=== PATIENT | female | born 1955 | race Caucasian/White ===

== ENCOUNTER 2023-09-17 09:54 | Outpatient (RCR) | payer OTHER, SELFPAY | END 2023-09-17 23:59 | disposition home or self-care (01) | LOC: RPT 09:54 | PROVIDERS: ATTENDING PHYSICIAN Student in an Organized Health Care Education/Training Program; FAMILY PHYSICIAN Internal Medicine | DX: M54.16 Radiculopathy, lumbar region (principal); Z73.6 Limitation of activities due to disability | CPT/HCPCS: 97010; 97110 ==

== ENCOUNTER → 2024-05-13 08:59 | Outpatient (REF) | payer OTHER, SELFPAY | LOC: HWRAD 08:59 | PROVIDERS: ATTENDING PHYSICIAN Surgery; FAMILY PHYSICIAN Internal Medicine | DX: K43.9 Ventral hernia without obstruction or gangrene (principal) | CPT/HCPCS: 74177; Q9967 ==

== ENCOUNTER 2025-06-28 06:18 | Day surgery (SDC) | payer OTHER, SELFPAY ==
[2025-06-23 09:06] LABS: INR 0.95; PT 13.1 Sec (11.4-14.6)
[2025-06-23 09:07] LABS: APTT 26.6 Sec (23.4-35.0); Hematocrit 41.0 % (37.0-47.0); Hemoglobin 13.9 g/dL (12.0-16.0); Mean Corp Hgb Conc. 33.9 g/dL (33.0-37.0); Mean Corpuscular Volume 89.5 fL (81.0-99.0); Platelet Count 278 10^3/uL (130-400); Red Cell Dist. Width 12.5 % (11.5-14.5)
[2025-06-23 09:44] LABS: ALT (SGPT) 47 U/L (0-35); AST (SGOT) 51 U/L (14-36); Albumin 4.5 g/dl (3.5-5.0); Alkaline Phosphatase 116 U/L (38-126); Blood Urea Nitrogen 17 mg/dl (7-17); Calcium 9.8 mg/dl (8.4-10.2); Carbon Dioxide 28 mmol/L (22-30); Chloride 104 mmol/L (98-107); Glucose 102 mg/dl (70-99); Potassium 4.5 mmol/L (3.5-5.1); Sodium 139 mmol/L (135-145); Total Protein 8.0 g/dl (6.3-8.2); eGFR > 60.00
[2025-06-23 14:18] VITALS: BMI 29.8
--- NOTE | 2025-06-24 11:30 | PTCARENOTE ---
Previous ECG dated 11/01/05 shows T wave abnormality.
[2025-06-28] VITALS (11 sets, daily range): BP systolic 120–175; BP diastolic 70–85; BMI 29.8
--- NOTE | 2025-06-28 09:17 | HP.FOC2 ---
Focused History & Physical
Chief Complaint
HPI:
Chief Complaint: Ventral hernia
HPI / Indication for Planned Procedure: Patient is a 69-year-old female recently seen in outpatient surgical evaluation secondary to a longstanding history of visible swelling along the upper central abdominal wall. It has slowly increased in size
over the years and now is visible through her clothing. The hernia is rarely painful but she does have an awareness of the pain present with some pressure and occasional discomfort. Physical examination confirmed the presence of a soft, partially
reducible ventral hernia along the central abdomen superior to the umbilicus. This is superimposed within significant diastasis recti. Patient presents today for scheduled operative correction of her symptomatic ventral hernia.
Relevant Past Medical History: Other (Hypertension, primary biliary cirrhosis/autoimmune hepatitis, anxiety)
Relevant Social History: ETOH (History of alcohol abuse/use)
Relevant Family History: Negative
Relevant Past Surgical History: Positive for (Tubal ligation, liver biopsy)
Review of Systems
Review of Pertinent Systems: All Systems Negative
Medication
See Medication form for detailed medications: Yes
Medication List (including Herbals & OTC):
lisinopril 20 mg-hydrochlorothiazide 25 mg tablet 1 tab PO DAILY Blood Pressure 04/14/23
ursodiol 500 mg tablet 500 mg PO TID Gallstones 04/14/23
Probiotic 1 cap PO DAILY 06/22/25
Vitamin D3 1 cap PO DAILY 06/22/25
omega 5-cfk-[id number]-fish oil 1,000 mg (120 mg-180 mg) capsule (Fish Oil) 1 cap PO DAILY 06/22/25
turmeric 1 cap PO DAILY 06/22/25
Medications Reviewed: Yes
Allergies and Reactions
Patient has Allergies: Yes
Noted Allergies and Reactions:
Allergy/AdvReac Type Severity Reaction Status Date / Time
MP3 Allergy Leg Uncoded 06/22/25 13:12
Swelling &
Fever
Pertinent Physical Exam
All Other Systems: Negative
Head/Neck: Normal
Lungs: Normal
Heart: Normal
Abdomen: Other (Supra umbilical ventral hernia, partially reducible)
Extremities: Normal
Neurological: Normal
Diagnosis / Assessment
69-year-old female presenting for scheduled operative correction ventral/umbilical hernia
Plan / Procedure
Robotic assisted laparoscopic repair of ventral/umbilical hernia with mesh
Anesthesia/Sedation to be done by Anesthesia Provider: Yes
--- NOTE | 2025-06-28 09:21 | W.SUR.PREOP ---
Pre-Operative Surgical Note
-
I have examined this patient prior to the performance of the scheduled procedure.
The patient's condition is unchanged from the time of the current History and
Physical and the patient is able to undergo the scheduled procedure.
[2025-06-28] MEDS: TYLENOL 1000 MG PO (09:33)
[2025-06-28] MEDS: NORMOSOL-R/PLASMALYTE-A 1000 IV (09:38)
--- NOTE | 2025-06-28 11:23 | W.IMMPOSTOP ---
Surgical Immed Post Op Note
-
Primary Surgeon: Mukesh Dumont MD
Assisting Surgeon: Mesha VELEZ; Kelly Hamilton
Pre-op Diagnosis: Ventral/umbilical hernia
Post-op Diagnosis: Ventral/umbilical hernia -total length including fascial bridge 7 cm
Procedure Performed: Robotic assisted laparoscopic AYANNA repair ventral/umbilical hernia with mesh; Bard soft 15 cm x 13 cm
Anesthesia Type: GETA +0.25% Marcaine with epi
Specimen / Cultures: None
Estimated Blood Loss: 6 mL
Complications: None immediate
Operative Findings: Symptomatic ventral hernia, 3 cm fascial defect. Multiple small areas of fascial separation subcentimeter inferior to primary ventral hernia. Umbilical hernia 1.5 cm. Total length of hernias including fascial bridge 7 cm
vertically. Transabdominal preperitoneal repair. Bard soft mesh 15 cm x 13 cm underlay secured with 2-0 Vicryl posterior sheath and linea alba fascial stitches. Peritoneal flap closed with 2-0 Monocryl STRATAFIX spiral. Umbilical hernia defect
and ventral hernia defect closed with 0 PDS STRATAFIX symmetric.
== END 2025-06-28 13:55 | disposition home or self-care (01) ==
LOC: SDS 06:18
PROVIDERS: ATTENDING PHYSICIAN Surgery; FAMILY PHYSICIAN Internal Medicine
DX: K43.9 Ventral hernia without obstruction or gangrene (principal); K42.9 Umbilical hernia without obstruction or gangrene
CPT/HCPCS: 49593; 36415; 80053; 85027; 85610; 85730; 93005; C1781